=== PATIENT | male | born 1955 ===

== ENCOUNTER 2019-02-15 13:13 | Emergency (ER) | payer BC, MEDICAID ==
--- NOTE | 2019-02-15 14:11 | C.PDOC ---
History Of Present Illness 63 y/o male c/o 5 days of left ear pain and itching that started after using a qtip. no drainage. no fever.pt took someone else's amoxicillin for 2 doses. . Time Seen by Provider: 02/15/19 13:28 Chief Complaint (Nursing): ENT Problem History Per: Patient History/Exam Limitations: None Onset/Duration Of Symptoms: Days (5) Current Symptoms Are (Timing): Still Present Quality (Ear): denies: Swelling, Discharge Severity: Mild Past Medical History Reviewed: Historical Data, Nursing Documentation, Vital Signs Vital Signs: Last Vital Signs Temp 98.9 F 02/15/19 13:24 Pulse 91 H 02/15/19 13:24 Resp 20 02/15/19 13:24 BP 150/83 02/15/19 13:24 Pulse Ox 99 02/15/19 13:24 Primary Care Provider: Non [facility] Provider, - Medical History PMH: No Chronic Diseases Family History: States: Unknown Family Hx - Social History Hx Tobacco Use: No Hx Alcohol Use: No Hx Substance Use: No - Immunization History Hx Tetanus Toxoid Vaccination: No Hx Influenza Vaccination: No Hx Pneumococcal Vaccination: No Review Of Systems Constitutional: Negative for: Fever, Chills ENT: Positive for: Ear Pain. Negative for: Ear Discharge, Nose Discharge, Throat Pain Physical Exam - Physical Exam Appears: Non-toxic, No Acute Distress Skin: Warm, Dry Head: Atraumatic, Normacephalic Eye(s): bilateral: Normal Inspection Ear(s): Bilateral: TM Obscured By Wax Nose: No Discharge Oral Mucosa: Moist Tongue: Normal Appearing Lips: Normal Appearing Throat: No Erythema, No Exudate Neck: Supple ED Course And Treatment O2 Sat by Pulse Oximetry: 99 Medical Decision Making Medical Decision Making: pt with bilateral cerumen karen contreras home with debrox and ent f/u Disposition Counseled Patient/Family Regarding: Diagnosis, Need For Followup, Rx Given - Disposition Referrals: Aashish Ventura MD [Staff Provider] - Disposition: HOME/ ROUTINE Disposition Time: 14:14 Condition: GOOD Additional Instructions: No tome antibiticos que no hayan sido prescritos para usted. Use Tylenol para pian si es necesario. Utilice Debrox segn lo prescrito. Renee un seguimiento con el doctor Audrey meza / luz marina / ricardo), llame el lunes o raffy para la shaun ms rpida, no ponga nada en los odos adems de la medicina. . Do not take antibiotics that weren't prescrbied for you. Use Tylenol for pian if needed. Use Debrox as prescribed. Follow up with Dr Ventura (ear/nose/throat) doctor, Call on Saturday or for soonest appointment, Do not put anything in ears besides medicine. . Prescriptions: Carbamide Peroxide [Debrox] 10 drop OT BID #1 bottle Instructions: Ear Wax Impaction (DC) Forms: Daric (Vietnamese) - Clinical Impression Clinical Impression: Impacted cerumen of both ears
[2019-02-15 14:41] VITALS: BP 147/80; PULSE 90; RESP 18; TEMP 98.7
[2019-02-16 21:39] VITALS: O2SAT 99
== END 2019-02-15 14:40 | disposition home or self-care (01) ==
LOC: C.ER 13:13
DX: H61.23 Impacted cerumen, bilateral (principal)